=== PATIENT | female | born 1955 | race Caucasian/White ===

== ENCOUNTER → 2018-02-04 | Outpatient (CLI) | payer BC ==
--- NOTE | 2018-02-04 15:33 | RAD ---
Left foot, 3 views, 02/04/2018: History: Fall, pain Comparison is made to a study from 07/07/2013. There is a new small fracture of the medial corner of the proximal end of the proximal phalanx of the great toe at the MTP joint level. There is slight medial displacement of a small fracture fragment. The fracture line involves the articular surface of the proximal phalanx. No other fracture or dislocation is identified. IMPRESSION: Fracture of the proximal end of the proximal phalanx of the left great toe with intra-articular extension.
== END | disposition home or self-care (01) ==
LOC: PMG 15:01
PROVIDERS: ATTEND Physician Assistant Medical
DX: S92.412A Displaced fracture of proximal phalanx of left great toe, initial encounter for closed fracture (principal); W19.XXXA Unspecified fall, initial encounter; Y93.89 Activity, other specified; Y92.89 Other specified places as the place of occurrence of the external cause; Y99.8 Other external cause status
CPT/HCPCS: 73620